=== PATIENT | male | born 1955 | race Caucasian/White ===

== ENCOUNTER 2018-06-26 02:59 | Emergency (ER) | payer OTHER ==
[~2018-06-26] VITALS: Ht 188 cm; Wt 82.5 kg
[2018-06-26 03:07] VITALS: BP 167/94
[2018-06-26] MEDS ORDERED: oseltamivir phos 75mg capsule PO ONE (03:55)
[2018-06-26] MEDS ORDERED: acetaminophen 325mg tablet PO ONE (03:55)
[2018-06-26] MEDS ORDERED: TAM75C PO (04:28)
[2018-06-26] MEDS ORDERED: ketorolac trometh inj. 60 MG/2 ML VIAL IM ONE (04:35)
== END 2018-06-26 05:10 | disposition home or self-care (01) ==
LOC: ER 03:02
DX: J11.1 Influenza due to unidentified influenza virus with other respiratory manifestations (principal); E78.00 Pure hypercholesterolemia, unspecified; I10 Essential (primary) hypertension; E11.9 Type 2 diabetes mellitus without complications
CPT/HCPCS: 71045; 96372; 99283; J1885